=== PATIENT | female | born 1985 | race Two or more races ===

== ENCOUNTER 2024-07-17 19:27 | Emergency (ER) | payer OTHER ==
[~2024-07-17] VITALS: Ht 157.5 cm; Wt 118.2 kg
[~2024-07-17 19:27] MED LIST: ETON68IM4 SD; PRENATALS
[2024-07-17 19:32] VITALS: BP 125/66; PULSE 83; RESP 20; TEMP 97.8; O2SAT 100
[2024-07-17] MEDS: PredniSONE 20 MG TABLET PO ONE (19:48)
[2024-07-17] MEDS: DiphenhydrAMINE HCL 25 MG CAPSULE PO ONE (19:48)
== END 2024-07-17 22:11 | disposition left against medical advice (07) ==
LOC: EMS 19:31
DX: R22.0 Localized swelling, mass and lump, head (principal); Z53.21 Procedure and treatment not carried out due to patient leaving prior to being seen by health care provider